=== PATIENT | male | born 1985 | race Two or more races ===

== ENCOUNTER 2024-07-05 08:28 | Emergency (ER) | payer OTHER, SELFPAY ==
[2024-07-05 08:30] VITALS: BMI 41.8
--- NOTE | 2024-07-05 08:34 | EKG_ITS ---
[facility] Test Date: 2024-07-05 Pat Name: ANTWAN ROBERTSON Department: Room: - Gender: Male [facility] Liaison: : 1985 Requested By: ED Temporary Provider Order Number: [id number] Reading MD: ED Temporary Provider Measurements Intervals [place] Rate: 51 P: 26 NV: 192 QRS: -15 QRSD: 92 T: 28 QT: 435 QTc: 401 Interpretive Statements SINUS BRADYCARDIA POSSIBLE ANTERIOR MYOCARDIAL INFARCTION , OF INDETERMINATE AGE [30 ms Q WAVE IN V3/V4, OR R < 0.2 mV IN V4] INFERIOR MYOCARDIAL INFARCTION , PROBABLY OLD [40+ ms Q WAVE AND/OR ST/T ABNORMALITY IN II/aVF] No previous ECG available for comparison /[id number]/[email or web address]/[id number].pdf
--- NOTE | 2024-07-05 08:54 | XR_ITS ---
Examination: PA lateral chest 2 views TECHNIQUE: Upright PA lateral chest 2 views Exam date and time: July 05, 2024 0919 hours INDICATIONS: Chest pain beginning one week ago. FINDINGS: Minimal prominence left ventricle Mild elevation right hemidiaphragm. No pneumonia or pulmonary edema. The osseous structures are intact IMPRESSION: No active disease
[2024-07-05 09:02] VITALS: BP 122/85; PULSE 63; RESP 19; TEMP 36.7; O2SAT 97
[2024-07-05 09:03] VITALS: BMI 41.6
--- NOTE | 2024-07-05 09:07 | XR_ITS ---
Examination: Abdomen sonogram, Limited Date and time of exam: July 05, 2024 0952 hours INDICATIONS: Upper abdominal pain beginning 10 days ago Technique: Real-time nuñez scale transabdominal sonographic images of the upper abdomen obtained. Findings: Normal gallbladder Normal common bile duct 0.5 cm Pancreatic head 4.9 cm Liver 18.7 cm fatty infiltration smooth contour no focal liver lesions Normal hepatopedal portal venous flow Patent IVC IMPRESSION: Normal gallbladder Prominent pancreatic head, consider MRCP follow-up to exclude pancreatitis
--- NOTE | 2024-07-05 09:08 | PD.EDRME ---
Rapid Medical Screening Exam E Arrival date/time: 07/05/24 08:28 38-year-old male presents emergency department with complaints of intermittent chest pain for 10 days. However reports that the last night he was awakened by his chest pressure that radiated to his left arm. I have greeted and performed a focused initial assessment of this patient. Initial appropriate labs ordered at this time. A comprehensive ED assessment and evaluation of the patient and analysis of all test and completion of medical decision making process will be conducted by additional ED provider. Chief Complaint: Chest Pain Time Seen by Provider: 07/05/24 08:51 Vital signs: Vital Signs Temperature 98.0 F 07/05/24 09:02 Pulse Rate 63 07/05/24 09:02 Respiratory Rate 19 07/05/24 09:02 Blood Pressure 122/85 H 07/05/24 09:02 Pulse Oximetry (%) 97 07/05/24 09:02 Oxygen Delivery Method Room Air 07/05/24 09:02
[2024-07-05] MEDS: Aspirin 325 MG TABLET PO (09:11)
[2024-07-05 09:37] LABS: Basophils % (Auto) 0 % (0-2.5); Eosinophils # (Auto) 0.3 Thou/mm3 (0.0-0.5); Eosinophils % (Auto) 4 % (0-10); Hemoglobin 15.8 g/dL (13.5-16.0); Immature Granulocytes % (Auto) 0 % (0-0); Immature Granulocytes Auto 0.01 Thou/mm3 (0.00-0.00); Lymphocytes # (Auto) 2.9 Thou/mm3 (1.0-4.8); Lymphocytes % (Auto) 39 % (10-50); Mean Corpuscular HGB Conc 34.3 g/dl (31.0-37.0); Mean Corpuscular Hemoglobin 29.5 pg (25.0-35.0); Mean Corpuscular Volume 86 fL (80-100); Monocytes # (Auto) 0.5 Thou/mm3 (0.0-0.8); Monocytes % (Auto) 6 % (0-12); Neutrophils # (Auto) 3.7 Thou/mm3 (1.8-7.7); Neutrophils % (Auto) 51 % (37-80); Nucleated Red Blood Cell % 0 /100 WBC (0); Platelet Count 311 Thou/mm3 (140-440); RDW Standard Deviation 40.4 fL (35.1-43.9); Red Blood Count 5.36 Miln/mm3 (4.50-5.90); White Blood Count 7.4 Thou/mm3 (3.8-10.6)
[2024-07-05 09:57] LABS: Prothrombin Time 10.9 Seconds (9.0-12.2)
[2024-07-05 10:00] LABS: Alanine Aminotransferase 72 U/L (10-49); Albumin, Serum 4.8 gm/dL (3.5-5.0); Albumin/Globulin Ratio 1.8 (1.2-2.2); Alkaline Phosphatase 95 U/L (46-116); Anion Gap 6 (7-16); Aspartate Amino Transferase 35 U/L (0-34); BUN/Creatinine Ratio 11 Ratio (12-20); Bilirubin,Total 0.8 mg/dL (0.3-1.2); Blood Urea Nitrogen 11 mg/dL (9-23); Calcium 9.2 mg/dL (8.3-10.6); Calcium (Corrected) 9.2 mg/dL (8.5-10.1); Carbon Dioxide 28.4 mMol/L (20.0-31.0); Chloride 104 mMol/L (98-107); Estimated Creatinine Clearance 142.1 mL/min (>60); Globulin 2.6 gm/dL (2.3-3.5); Glucose 100 mg/dL (74-106); Lipase 45 U/L (12-53); Magnesium 2.1 mg/dL (1.6-2.6); Osmolality,Calculated 275 (275-295); Potassium 3.9 mMol/L (3.4-5.1); Sodium 138 mMol/L (136-145); Total Protein 7.4 gm/dL (5.7-8.2); Troponin I < 0.020 ng/mL (0.0-0.045); eGFR > 60 See Note
[2024-07-05 10:20] LABS: B-Type Natriuretic Peptide < 20 pg/mL (0-100)
[2024-07-05 12:58] LABS: Troponin I < 0.020 ng/mL (0.0-0.045)
--- NOTE | 2024-07-05 13:28 | EDNOTE_ITS ---
<Statement entered by Zenaida Malcolm MD - 07/09/24 07:24> As co-signing physician, I was present and available for consult prn. I concur with the plan and care as documented by the midlevel provider. ED Chest Pain RME/HPI General Chief Complaint: Chest Pain Stated Complaint: CHEST PAIN, BACK PAIN Time Seen by Provider: 07/05/24 08:51 Arrival date/time: 07/05/24 08:28 RME / HPI RME / HPI narrative: 38-year-old male patient with no significant medical history, came in for evaluation regarding posterior chest pain, has been ongoing for the last 10 days, comes and goes, radiating to the anterior chest. Described as dull ache, severity moderate. Patient denies any cough denies any other complaints no medications taken prior to arrival. Related Data Allergies Allergy/AdvReac Type Severity Reaction Status Date / Time No Known Allergies Allergy Verified 07/05/24 08:29 Review of Systems Review of Systems Narrative Review of Systems: Review of system reviewed and within normal limits except mentioned in HPI ED Exam Narrative Physical exam: VITAL SIGNS: Reviewed. GENERAL APPEARANCE: Alert and interactive, follows commands, no acute distress, HEAD AND FACE: Non-traumatic. ENT: PERRL, pink conjunctivitis, eyelid no trauma, Mucous membrane moist. NECK: Supple, nontender, no nuchal rigidity. CHEST: No tenderness, no crepitus, no paradoxical movement, no retractions. LUNGS: Clear, well ventilated, symmetric, no rales, no wheezing, no ronchi, no stridor, good breath sounds bilaterally. HEART: Regular rate, regular rhythm, no murmur, no gallops. ABDOMEN: Soft, positive bowel sounds, nondistended, no guarding, nontender, no rebound, no masses, RECTAL: Deferred. GENITAL: Deferred. NEUROLOGICAL: Gross motor function intact sensory function intact, Appropriate for age. MUSCULOSKELETAL: low back nontender, full range of motion. EXTREMITIES: Nontender, full range of motion. SKIN: Color pink, dry, no rash, no lacerations, no abrasions, no contusions. LYMPHATICS: Deferred. Course Quality Measures none Orders Category Date Time Status EKG (ED ONLY) *Do not use* NOW Care 07/05/24 08:34 Completed EKG (ED Only) Stat Exams 07/05/24 08:34 Draft US gall bladder Stat Exams 07/05/24 09:07 Completed XR chest 2V Stat Exams 07/05/24 08:54 Completed B-Type Natriuretic Peptide Stat Lab 07/05/24 09:20 Completed CBC Stat Lab 07/05/24 09:20 Completed Comprehensive Metabolic Panel Stat Lab 07/05/24 09:20 Completed Lipase Stat Lab 07/05/24 09:20 Completed Magnesium Stat Lab 07/05/24 09:20 Completed Prothrombin Time with INR Stat Lab 07/05/24 09:20 Completed Troponin I Stat Lab 07/05/24 09:20 Completed Troponin I Stat Lab 07/05/24 11:39 Completed Aspirin Med 07/05/24 09:07 Discontinued 325 mg PO X1 ONE Vital Signs Vital signs: Vital Signs Temperature 98.0 F 07/05/24 09:02 Pulse Rate 63 07/05/24 09:02 Respiratory Rate 19 07/05/24 09:02 Blood Pressure 122/85 H 07/05/24 09:02 Pulse Oximetry (%) 97 07/05/24 09:02 Oxygen Delivery Method Room Air 07/05/24 09:02 Chest Pain MDM Narrative MDM Narrative:: 38-year-old male patient with no significant medical history, came in for evaluation regarding posterior chest pain, has been ongoing for the last 10 days, comes and goes, radiating to the anterior chest. Described as dull ache, severity moderate. Patient denies any cough denies any other complaints no medications taken prior to arrival. Cardiac workup including troponin x 2 all came back normal. Chest x-ray also came back unremarkable. The rest of the labs unremarkable including normal ultrasound also. EKG showed sinus bradycardia, ventricular rate of 51 bpm, no ST segment elevation or depression noted. Results discussed with the patient. Patient's pain could be muscular in nature. Patient appears nontoxic and hemodynamically stable. Patient discharged home and instructed to follow-up with primary care provider in 24 to 48 hours. Instructed to return to the emergency department immediately if worsening of symptoms Patient data External records reviewed:: None Clinical information provided by:: patient Social determinants that could affect healthcare access:: none Patient has the following chronic illnesses:: None How is presenting disease/condition affected by chronic disease/condition?: no chronic disease Evaluation data The following diagnostics were reviewed and interpreted by me:: lab results, radiology exam(s) and EKG tracing(s) Lab and/or radiology exams considered but not ordered:: None Interpretation Summary: See results in MDM Medications / Prescriptions Medications or Prescriptions considered but not ordered:: None Medication administrations:: Medication Administration History Discontinued Medications Aspirin (Aspirin 325 Mg Tablet) 325 mg PO X1 ONE Stop: 07/05/24 09:08 Last Admin: 07/05/24 09:11 Dose: 325 mg Documented By: DB Aspirin Consultations Consultation(s) initiated? (list below): No Diagnosis Chest Pain Differential Diagnosis: pneumothorax, costochondritis and chest pain Most likely diagnosis given after review of the tests above:: Chest pain, muscular Admission Indicated Admission indicated?: not indicated Explain why admission is indicated or not indicated:: Stable Admission Request Was there a request for admission?: No Disposition Plan Disposition Plan: Discharge Discharge Attestation Discharge Attestation: The patient and all family members were given an opportunity to ask questions and understood the discharge instructions. Discharge instructions specifically effects, indications for sooner follow up or return to the emergency department, and the expected course of current diagnosis. Patient condition: Stable Discharge Plan Plan Patient Disposition: HOME (Self Care) Disposition Comment: stable Prescriptions/Referrals Referrals: Rob Chambers FNP [Primary Care Provider] - In 1 week Problem List Clinical Impression: Chest pain, muscular Patient/Caregiver Discharge Instructions Discharge Activity: activity as tolerated Education Materials: ED Chest Pain, Noncardiac Additional Instructions: Thank you for the opportunity for serving you today. You are stable for discharged . You are advised to: Follow-up with your PCP in 1 to 2 days Return to ED for worsening of symptoms Increase oral fluids Take [id number] Motrin as needed for pain Print Language: Mongolian Stand Alone Forms: Naz Award Info., Patient Portal Info Letter NINFA/KAMLA Supervising Physician NINFA/KAMLA Supervising Physician: MD Yun
== END 2024-07-05 14:07 | disposition home or self-care (01) ==
PROVIDERS: Nurse Practitioner Primary Care; Emergency Provider Emergency Medicine; PCP Nurse Practitioner Family
DX: R07.89 Other chest pain (principal); R00.1 Bradycardia, unspecified; M54.9 Dorsalgia, unspecified
CPT/HCPCS: 36415; 71046; 76705; 80053; 83690; 83735; 83880; 84484; 85025; 85610; 93005; 99284; A9270